=== PATIENT | female | born 1970 | race Caucasian/White ===

== ENCOUNTER 2016-07-21 07:06 | Outpatient (CLI) | payer OTHER ==
[2016-07-21 11:55] LABS: BASOPHILS # (AUTO) 0.1 10^3/uL (0.0-0.1); BASOPHILS % (AUTO) 1.1 %; EOSINOPHILS # (AUTO) 0.2 10^3/uL (0.0-0.7); EOSINOPHILS % (AUTO) 4.1 %; HCT - HEMATOCRIT 40.5 % (37.0-47.0); HGB - HEMOGLOBIN 13.7 g/dL (12.0-16.0); LYMPHOCYTES # (AUTO) 1.8 10^3/uL (1.5-3.5); MEAN CORPUSCULAR HEMOGLOBIN 31.9 pg (27.0-31.0); MEAN CORPUSCULAR HGB CONC 33.8 g/dL (32.0-36.0); MEAN CORPUSCULAR VOLUME 94.2 fL (81.0-99.0); MEAN PLATELET VOLUME 7.6 fL (7.9-10.8); MONOCYTES # (AUTO) 0.5 10^3/uL (0.0-1.0); MONOCYTES % (AUTO) 9.4 %; NEUTROPHILS # (AUTO) 2.5 10^3/uL (1.5-6.6); NEUTROPHILS % (AUTO) 49.4 %; RED CELL DISTRIBUTION WIDTH 12.4 % (12.0-15.0); UNCORRECTED WHITE BLOOD COUNT 5.1 x10^3/uL; WHITE BLOOD COUNT 5.1 x10^3/uL (4.8-10.8)
[2016-07-21 12:14] LABS: ALBUMIN/GLOBULIN RATIO 1.2 (1.0-2.2); BILIRUBIN,TOTAL 0.5 mg/dL (0.2-1.0); BUN - BLOOD UREA NITROGEN 14 mg/dL (6-20); CALCIUM 9.1 mg/dL (8.5-10.3); CARBON DIOXIDE - CO2 30 mmol/L (21-32); CHLORIDE 101 mmol/L (101-111); CHOL/HDL RATIO 3.1 (<4.4); CHOLESTEROL 271 mg/dL; CREATININE 0.7 mg/dL (0.4-1.0); GFR - MDRD 90 (>89); GLUCOSE 101 mg/dL (70-100); HDL CHOLESTEROL 88 mg/dL; LDL/HDL RATIO 1.6 (<4.4); SODIUM 139 mmol/L (135-145); TOTAL PROTEIN 7.5 g/dL (6.7-8.2); TRIGLYCERIDES 200 mg/dL; VLDL CHOLESTEROL 40 mg/dL
[2016-07-21 12:30] LABS: FERRITIN 19.4 ng/mL (11.0-306.8)
[2016-07-21 12:43] LABS: THYROID STIMULATING HORMONE 5.86 uIU/mL (0.34-5.60)
== END 2016-07-21 07:07 | disposition home or self-care (01) ==
LOC: LAB.F 07:06
PROVIDERS: ATTEND Nurse Practitioner Family
DX: Z00.00 Encounter for general adult medical examination without abnormal findings (principal); E03.9 Hypothyroidism, unspecified
CPT/HCPCS: 36415; 80053; 80061; 82306; 82728; 84436; 84439; 84443; 84481; 85025; 86376

== ENCOUNTER 2017-12-16 07:19 | Outpatient (CLI) | payer OTHER ==
[2017-12-16 12:25] LABS: BASOPHILS % (AUTO) 0.4 %; EOSINOPHILS # (AUTO) 0.2 10^3/uL (0.0-0.7); EOSINOPHILS % (AUTO) 3.6 %; HGB - HEMOGLOBIN 13.6 g/dL (12.0-16.0); LYMPHOCYTES % (AUTO) 34.7 %; MEAN CORPUSCULAR HEMOGLOBIN 32.9 pg (27.0-31.0); MEAN CORPUSCULAR HGB CONC 35.2 g/dL (32.0-36.0); MEAN CORPUSCULAR VOLUME 93.5 fL (81.0-99.0); MEAN PLATELET VOLUME 7.5 fL (7.9-10.8); MONOCYTES # (AUTO) 0.6 10^3/uL (0.0-1.0); MONOCYTES % (AUTO) 10.8 %; NEUTROPHILS % (AUTO) 50.5 %; PLT - PLATELET COUNT 265 10^3/uL (130-450); RED BLOOD COUNT 4.12 10^6/uL (4.20-5.40); RED CELL DISTRIBUTION WIDTH 12.5 % (12.0-15.0); WHITE BLOOD COUNT 5.9 x10^3/uL (4.8-10.8)
[2017-12-16 12:35] LABS: ALBUMIN/GLOBULIN RATIO 1.1 (1.0-2.2); ALKALINE PHOSPHATASE 69 IU/L (42-121); ALT ALANINE AMINOTRANSFERASE 21 IU/L (10-60); AST ASPARTATE AMINOTRANSFERASE 19 IU/L (10-42); BILIRUBIN,TOTAL 0.7 mg/dL (0.2-1.0); BUN - BLOOD UREA NITROGEN 20 mg/dL (6-20); CALCIUM 8.9 mg/dL (8.5-10.3); CARBON DIOXIDE - CO2 30 mmol/L (21-32); CHLORIDE 97 mmol/L (101-111); CHOLESTEROL 262 mg/dL; CREATININE 0.7 mg/dL (0.4-1.0); GFR - MDRD 89 (>89); GLUCOSE 108 mg/dL (70-100); HDL CHOLESTEROL 86 mg/dL; LDL CHOLESTEROL,CALCULATED 145 mg/dL; LDL/HDL RATIO 1.7 (<4.4); SODIUM 135 mmol/L (135-145); TOTAL PROTEIN 7.5 g/dL (6.7-8.2); VLDL CHOLESTEROL 31 mg/dL
[2017-12-16 12:41] LABS: THYROID STIMULATING HORMONE 3.97 uIU/mL (0.34-5.60)
[2017-12-16 12:43] LABS: FREE T4 (FREE THYROXINE) 0.87 ng/dL (0.58-1.64)
== END 2017-12-16 07:20 | disposition home or self-care (01) ==
LOC: LAB.F 07:19
PROVIDERS: ATTEND Nurse Practitioner Family
DX: Z00.00 Encounter for general adult medical examination without abnormal findings (principal); E55.9 Vitamin D deficiency, unspecified; E78.5 Hyperlipidemia, unspecified; E03.9 Hypothyroidism, unspecified
CPT/HCPCS: 36415; 80053; 80061; 82306; 83721; 84439; 84443; 84481; 85025

== ENCOUNTER 2018-01-16 16:05 | Outpatient (CLI) | payer OTHER ==
--- NOTE | 2018-01-17 09:13 | Mammography Report ---
Reason: SCREENING MAMMO Procedure Date: 01/16/2018 Accession Number: [id number] / [id number] Procedure: [facility] - Screening Mammo w/Rajiv CPT Code: FULL RESULT: EXAM: Screening Mammo w/Rajiv DATE: 01/16/2018 4:35 PM CLINICAL HISTORY: Screening encounter. Family history of breast cancer in the mother at age 55 the sister at age 40 and a grandmother at age 75. TECHNIQUE: Bilateral CC, laterally exaggerated CC, MLO views were obtained. COMPARISON: 09/09/2014 through 01/16/2009. FINDINGS: The breasts demonstrate scattered fibroglandular densities bilaterally. No suspicious masses, clustered microcalcifications, or regions of architectural distortion are identified. IMPRESSION: Negative examination RECOMMENDATION: Routine annual screening unless otherwise clinically indicated. BIRADS CATEGORY 1: Negative STANDARD QUALIFYING STATEMENTS: 1. This examination was not reviewed with the aid of Computer-Aided Detection (CAD). 2. A negative or benign imaging report should not preclude biopsy if clinically suspicious findings are present. 3. Dense breasts may obscure an underlying neoplasm. 4. This examination was reviewed with the aid of 3D breast imaging (tomosynthesis).
== END 2018-01-16 16:06 | disposition home or self-care (01) ==
LOC: DI 16:05
PROVIDERS: ATTEND Nurse Practitioner Family
DX: Z12.31 Encounter for screening mammogram for malignant neoplasm of breast (principal); Z80.3 Family history of malignant neoplasm of breast
CPT/HCPCS: 77063; 77067

== ENCOUNTER 2019-12-28 07:43 | Outpatient (CLI) | payer OTHER ==
[2019-12-28 07:56] LABS: BASOPHILS # (AUTO) 0.1 10^3/uL (0.0-0.1); BASOPHILS % (AUTO) 0.8 %; EOSINOPHILS # (AUTO) 0.3 10^3/uL (0.0-0.7); EOSINOPHILS % (AUTO) 4.8 %; LYMPHOCYTES # (AUTO) 2.5 10^3/uL (1.5-3.5); LYMPHOCYTES % (AUTO) 41.1 %; MEAN CORPUSCULAR HEMOGLOBIN 32.7 pg (27.0-31.0); MEAN CORPUSCULAR HGB CONC 33.5 g/dL (32.0-36.0); MEAN CORPUSCULAR VOLUME 97.7 fL (81.0-99.0); MEAN PLATELET VOLUME 8.6 fL (7.9-10.8); MONOCYTES # (AUTO) 0.6 10^3/uL (0.0-1.0); MONOCYTES % (AUTO) 9.3 %; NEUTROPHILS # (AUTO) 2.6 10^3/uL (1.5-6.6); NEUTROPHILS % (AUTO) 43.8 %; PLT - PLATELET COUNT 266 10^3/uL (130-450); RED BLOOD COUNT 4.28 10^6/uL (4.20-5.40); RED CELL DISTRIBUTION WIDTH 12.3 % (12.0-15.0)
[2019-12-28 08:16] LABS: ALBUMIN/GLOBULIN RATIO 1.1 (1.0-2.2); ALKALINE PHOSPHATASE 84 IU/L (42-121); ALT ALANINE AMINOTRANSFERASE 27 IU/L (10-60); AST ASPARTATE AMINOTRANSFERASE 24 IU/L (10-42); BILIRUBIN,TOTAL 0.4 mg/dL (0.2-1.0); BUN - BLOOD UREA NITROGEN 10 mg/dL (6-20); CALCIUM 9.2 mg/dL (8.5-10.3); CARBON DIOXIDE - CO2 27 mmol/L (21-32); CHLORIDE 99 mmol/L (101-111); CHOL/HDL RATIO 2.9 (<4.4); CHOLESTEROL 258 mg/dL; CREATININE 0.8 mg/dL (0.4-1.0); GLUCOSE 116 mg/dL (70-100); HDL CHOLESTEROL 89 mg/dL; LDL CHOLESTEROL,CALCULATED 131 mg/dL; LDL/HDL RATIO 1.5 (<4.4); SODIUM 138 mmol/L (135-145); TOTAL PROTEIN 7.5 g/dL (6.7-8.2); VLDL CHOLESTEROL 38 mg/dL
[2019-12-28 08:27] LABS: T4 (THYROXINE) 6.94 ug/dL (6.09-12.23)
[2019-12-28 08:29] LABS: THYROID STIMULATING HORMONE 1.97 uIU/mL (0.34-5.60)
[2019-12-28 08:30] LABS: FREE T3 3.44 pg/mL (2.5-3.9)
[2019-12-28 08:31] LABS: FREE T4 (FREE THYROXINE) 0.98 ng/dL (0.58-1.64)
[2019-12-28 08:35] LABS: FERRITIN 126.5 ng/mL (11.0-306.8)
[2019-12-28 13:39] LABS: HEMOGLOBIN A1c% 5.7 % (4.27-6.07)
== END 2019-12-28 07:44 | disposition home or self-care (01) ==
LOC: LAB 07:43
PROVIDERS: ATTEND Nurse Practitioner Family
DX: N92.0 Excessive and frequent menstruation with regular cycle (principal); E03.9 Hypothyroidism, unspecified; L40.9 Psoriasis, unspecified; R73.09 Other abnormal glucose; E78.5 Hyperlipidemia, unspecified
CPT/HCPCS: 36415; 80053; 80061; 81599; 82306; 82728; 83036; 83525; 83721; 84436; 84439; 84443; 84481; 85025; 86376

== ENCOUNTER 2020-01-09 15:07 | Outpatient (CLI) | payer OTHER ==
--- NOTE | 2020-01-10 07:44 | Mammography Report ---
BILATERAL DIGITAL SCREENING MAMMOGRAM 3D/2D: 01/09/2020 CLINICAL: Family history of breast cancer. Routine screening. Comparison is made to exams dated: 01/16/2018 mammogram, 09/09/2014 mammogram, 02/11/2014 mammogram, 06/07 mammogram, 11/24/2012 mammogram, and 03/15/2012 mammogram - [facility]. There are scattered fibroglandular elements in both breasts. No significant masses, calcifications, or other findings are seen in either breast. There has been no significant interval change. IMPRESSION: NEGATIVE There is no mammographic evidence of malignancy. A 1 year screening mammogram is recommended. This exam was interpreted at Station ID: [id number]. NOTE: For mammograms, a report in lay terms will be sent to the patient. Approximately 15% of breast malignancies will not be visualized mammographically. In the management of a palpable breast mass, a negative mammogram must not discourage biopsy of a clinically suspicious lesion. Electronically Signed By: Jay Alexis M.D. [email or web address]/[email or web address]:01/09/2020 16:15:01 ACR BI-RADS Category 1: Negative 3341F PARENCHYMAL PATTERN: (A) - The breast(s) demonstrate(s) scattered fibroglandular densities. BI-RADS CATEGORY: (1) - 1 RECOMMENDATION: (ANNUAL) - Recommend routine annual screening mammography. [id number] 1 year screening LATERALITY: (B)
== END 2020-01-09 15:08 | disposition home or self-care (01) ==
LOC: DI.N 15:07
PROVIDERS: ATTEND Nurse Practitioner Family
DX: Z12.31 Encounter for screening mammogram for malignant neoplasm of breast (principal); Z80.3 Family history of malignant neoplasm of breast

== ENCOUNTER 2020-08-10 20:48 | Emergency (ER) | payer OTHER ==
[2020-08-10] MEDS ORDERED: BACITRACIN ZINC OINT 1 PACKET TOP STA (21:24)
[2020-08-10] MEDS ORDERED: TETANUS/DIPHTHERIA/PERTUSSIS 0.5 ML SYRINGE IM ONE (21:24)
[2020-08-10] MEDS ORDERED: BUFFERED LIDOCAINE 10 ML SYRINGE SUBQ STA (21:24)
--- NOTE | 2020-08-10 21:25 | ED Physician Documentation ---
History of Present Illness - Stated complaint Stated Complaint: LT ANKLE LAC/DOG BITE - Chief complaint Chief Complaint: Laceration - Additonal information Additional information: [id number] female presents emergency department for evaluation of a left lower leg after a dog bite. Her neighbors dog had gotten out of his backyard as he was scared with the fireworks. When they were attempting to put him back into the backyard he bit her. PD PAST MEDICAL HISTORY - Present Medications Home Medications: Ambulatory Orders Medication Instructions Recorded Confirmed Amox/Clav 875/125 [Augmentin] 1 each PO Q12H #20 tablet 08/10/20 - Allergies Allergies/Adverse Reactions: Allergies Allergy/AdvReac Type Severity Reaction Status Date / Time No Known Drug Allergies Allergy Verified 08/10/20 20:57 PD ED PE EXPANDED - Extremities Extremities: Left leg (To dog bite lacerations left medial lower leg 1 measuring 3 cm the other measuring 4 cm. Mild surrounding ecchymosis.) Results - Vitals Vitals: Vital Signs - 24 hr 08/10/20 20:52 Temperature 36.7 C Heart Rate 123 H Respiratory 16 Rate Blood Pressure 167/85 H O2 Saturation 99 Oxygen O2 Source Room air Procedures - Laceration (location) left medial leg Length in cm: 7 Wound type: Linear, Into subcut fat Neurovascular status: Sensory intact, Motor intact Tendon involvement: Tendon intact Anesthesia: Lidocaine 1% Wound preparation: Chlorhexadine, Irrigated copiously NS, Wound explored Skin layer closure: Nylon, Interrupted, Sutures - enter # (6) Other: Patient tolerated well, No complications, Neurovascular intact, Dressing applied, Tetanus UTD PD MEDICAL DECISION MAKING - ED course Complexity details: reviewed results, re-evaluated patient, d/w patient ED course: 50-year-old female presents emergency department for evaluation of left lower medial leg laceration/dog bite sustained this afternoon. Tetanus was updated today in the ER. This was a dog bite the lacerations were of appropriate length to consider primary closure. The wounds were scrubbed thoroughly with chlorhexidine and irrigated with a total volume of 500 mils sterile saline. Patient will be started on Augmentin. Routine wound care and emergent return precautions were discussed for concerns of infection. Impression: Dog bite Dog bite laceration left lower medial leg. Departure - Departure Disposition: 01 Home, Self Care Condition: Stable Record reviewed to determine appropriate education?: Yes Instructions: ED Laceration All, ED Bite Dog Follow-Up: Pato Webster ARNP [Primary Care Provider] - Prescriptions: Amox/Clav 875/125 [Augmentin] 1 each PO Q12H #20 tablet Comments: Katelin it was a pleasure to meet you today. I am so sorry that your 10 August ended with a dog bite. Unfortunately dog bite wounds do carry a higher risk of infection. Your first dose of antibiotic was given here in the emergency department. Please fill the prescription for the Augmentin and begin taking twice daily as prescribed. Your suture should be removed in 7 to 10 days. In 24 hours you may remove the dressing wash gently with warm soap and water, apply any antibiotic ointment and a simple bandage. Your tetanus is up-to-date as of today. Please attempt to keep your wound clean and dry. Do not submerge it in dirty dishwater or bath water. Return to the emergency department if you have any concerns of infection such as redness, fevers milky drainage increased pain.
[2020-08-10] MEDS ORDERED: AMOX/CLAV 875 MG/125 MG TABLET PO STA (22:00)
[2020-08-10 22:13] VITALS: BP 148/71
== END 2020-08-10 22:11 | disposition home or self-care (01) ==
LOC: ED 20:48
DX: S81.852A Open bite, left lower leg, initial encounter (principal); W54.0XXA Bitten by dog, initial encounter; Y93.89 Activity, other specified
CPT/HCPCS: 12002; 90471; 90715; 99281; 99283; A9270

== ENCOUNTER 2020-09-19 09:41 | Outpatient (CLI) | payer OTHER ==
[2020-09-19 10:03] LABS: BASOPHILS % (AUTO) 0.7 %; EOSINOPHILS # (AUTO) 0.2 10^3/uL (0.0-0.7); EOSINOPHILS % (AUTO) 3.5 %; HCT - HEMATOCRIT 40.7 % (37.0-47.0); HGB - HEMOGLOBIN 13.2 g/dL (12.0-16.0); LYMPHOCYTES # (AUTO) 2.3 10^3/uL (1.5-3.5); LYMPHOCYTES % (AUTO) 41.1 %; MEAN CORPUSCULAR HEMOGLOBIN 31.7 pg (27.0-31.0); MEAN CORPUSCULAR HGB CONC 32.4 g/dL (32.0-36.0); MEAN CORPUSCULAR VOLUME 97.8 fL (81.0-99.0); MEAN PLATELET VOLUME 8.8 fL (7.9-10.8); MONOCYTES # (AUTO) 0.6 10^3/uL (0.0-1.0); MONOCYTES % (AUTO) 10.1 %; NEUTROPHILS # (AUTO) 2.5 10^3/uL (1.5-6.6); NEUTROPHILS % (AUTO) 44.4 %; PLT - PLATELET COUNT 247 10^3/uL (130-450); RED BLOOD COUNT 4.16 10^6/uL (4.20-5.40); RED CELL DISTRIBUTION WIDTH 11.9 % (12.0-15.0); WHITE BLOOD COUNT 5.7 x10^3/uL (4.8-10.8)
[2020-09-19 10:20] LABS: ALBUMIN 4.1 g/dL (3.2-5.5); ALBUMIN/GLOBULIN RATIO 1.2 (1.0-2.2); ALKALINE PHOSPHATASE 55 IU/L (42-121); ALT ALANINE AMINOTRANSFERASE 19 IU/L (10-60); AST ASPARTATE AMINOTRANSFERASE 19 IU/L (10-42); BILIRUBIN,TOTAL 0.5 mg/dL (0.2-1.0); BUN - BLOOD UREA NITROGEN 16 mg/dL (6-20); CALCIUM 9.5 mg/dL (8.5-10.3); CARBON DIOXIDE - CO2 29 mmol/L (21-32); CHLORIDE 99 mmol/L (101-111); CREATININE 0.8 mg/dL (0.4-1.0); GFR - MDRD 75 (>89); GLUCOSE 115 mg/dL (70-100); POTASSIUM 4.5 mmol/L (3.5-5.0); SODIUM 139 mmol/L (135-145); TOTAL PROTEIN 7.5 g/dL (6.7-8.2)
[2020-09-19 10:23] LABS: BILIRUBIN,DIRECT < 0.1 mg/dL (0.1-0.5)
== END 2020-09-19 09:42 | disposition home or self-care (01) ==
LOC: LAB 09:41
PROVIDERS: ATTEND Physician Assistant
DX: L40.0 Psoriasis vulgaris (principal)
CPT/HCPCS: 36415; 80053; 80076; 82248; 85025

== ENCOUNTER 2021-04-13 08:13 | Outpatient (CLI) | payer OTHER ==
[2021-04-15 14:31] LABS: NIL 0.02 IU/mL
== END 2021-04-13 08:14 | disposition home or self-care (01) ==
LOC: LAB 08:13
PROVIDERS: ATTEND Physician Assistant
DX: L40.0 Psoriasis vulgaris (principal)
CPT/HCPCS: 36415; 86480

== ENCOUNTER 2021-11-07 08:00 | Outpatient (CLI) | payer OTHER | END 2021-11-07 23:59 | disposition home or self-care (01) | LOC: LAB.N 08:00 | PROVIDERS: ATTEND Physician Assistant Medical | DX: N30.00 Acute cystitis without hematuria (principal) | CPT/HCPCS: 87086; 87181 ==

== ENCOUNTER 2022-04-06 08:02 | Outpatient (CLI) | payer OTHER ==
[2022-04-06 08:18] LABS: BASOPHILS # (AUTO) 0.1 10^3/uL (0.0-0.1); EOSINOPHILS # (AUTO) 0.2 10^3/uL (0.0-0.7); EOSINOPHILS % (AUTO) 3.1 %; HCT - HEMATOCRIT 40.5 % (37.0-47.0); HGB - HEMOGLOBIN 13.3 g/dL (12.0-16.0); LYMPHOCYTES # (AUTO) 2.3 10^3/uL (1.5-3.5); LYMPHOCYTES % (AUTO) 36.7 %; MEAN CORPUSCULAR HGB CONC 32.8 g/dL (32.0-36.0); MEAN CORPUSCULAR VOLUME 94.4 fL (81.0-99.0); MEAN PLATELET VOLUME 8.5 fL (7.9-10.8); MONOCYTES # (AUTO) 0.7 10^3/uL (0.0-1.0); MONOCYTES % (AUTO) 10.6 %; NEUTROPHILS % (AUTO) 48.3 %; PLT - PLATELET COUNT 274 10^3/uL (130-450); RED BLOOD COUNT 4.29 10^6/uL (4.20-5.40); RED CELL DISTRIBUTION WIDTH 11.7 % (12.0-15.0); WHITE BLOOD COUNT 6.2 x10^3/uL (4.8-10.8)
[2022-04-06 08:35] LABS: ALBUMIN 3.9 g/dL (3.2-5.5); ALKALINE PHOSPHATASE 66 IU/L (42-121); ALT ALANINE AMINOTRANSFERASE 27 IU/L (10-60); AST ASPARTATE AMINOTRANSFERASE 21 IU/L (10-42); BILIRUBIN,TOTAL 0.5 mg/dL (0.2-1.0); BUN - BLOOD UREA NITROGEN 23 mg/dL (6-20); CALCIUM 9.3 mg/dL (8.5-10.3); CARBON DIOXIDE - CO2 28 mmol/L (21-32); CHLORIDE 94 mmol/L (101-111); CHOL/HDL RATIO 2.8 (<4.4); CHOLESTEROL 259 mg/dL; CREATININE 0.9 mg/dL (0.4-1.0); GFR - MDRD 65 (>89); GLUCOSE 128 mg/dL (70-100); HDL CHOLESTEROL 91 mg/dL; LDL CHOLESTEROL,CALCULATED 134 mg/dL; LDL/HDL RATIO 1.5 (<4.4); POTASSIUM 3.7 mmol/L (3.5-5.0); SODIUM 134 mmol/L (135-145); TOTAL PROTEIN 7.7 g/dL (6.7-8.2); TRIGLYCERIDES 169 mg/dL; VLDL CHOLESTEROL 34 mg/dL
[2022-04-06 08:48] LABS: THYROID STIMULATING HORMONE 4.57 uIU/mL (0.34-5.60)
== END 2022-04-06 08:03 | disposition home or self-care (01) ==
LOC: LAB 08:02
PROVIDERS: ATTEND Nurse Practitioner Family
DX: I10 Essential (primary) hypertension (principal); E03.9 Hypothyroidism, unspecified; Z13.220 Encounter for screening for lipoid disorders; L40.0 Psoriasis vulgaris
CPT/HCPCS: 36415; 80053; 80061; 81599; 83721; 84443; 85025; 86480

== ENCOUNTER 2022-04-14 14:53 | Outpatient (CLI) | payer OTHER ==
--- NOTE | 2022-04-15 15:39 | Mammography Report ---
BILATERAL DIGITAL SCREENING MAMMOGRAM 3D/2D: 04/14/2022 CLINICAL: Routine screening. Comparison is made to exams dated: 01/16/2018 mammogram, 01/09/2020 mammogram, 09/09/2014 mammogram, 02/11/2014 mammogram, and 06/18/2013 mammogram - [facility]. There are scattered areas of fibroglandular density in both breasts (category b / 25%-50% glandular t issue). No significant masses, calcifications, or other findings are seen in either breast. There has been no significant interval change. IMPRESSION: NEGATIVE There is no mammographic evidence of malignancy. A 1 year screening mammogram is recommended. Based on Tyrer-Cuzick model (a risk assessment model), the patient's lifetime risk is 24.1% and her 1 0 year risk is 6.9%. If a patient has an elevated risk, a more comprehensive evaluation should be con sidered and/or a referral to a genetic counselor. The [place] [employer], [place] [employer], and NCCN Guidelines advise the consideration of Breast MRI as an adjunct to screening mammog wily in patients whose "Lifetime risk to develop breast cancer" is 20% or higher. This exam was interpreted at Station ID: [id number]. NOTE: For mammograms, a report in lay terms will be sent to the patient. Approximately 15% of breast malignancies will not be visualized mammographically. In the management of a palpable breast mass, a negative mammogram must not discourage biopsy of a clinically suspicious lesion. Electronically Signed By: Juan shetty/angelo:04/15/2022 07:23:36 letter sent: No_Letter ACR BI-RADS Category 1: Negative 3341F PARENCHYMAL PATTERN: (A) - The breast(s) demonstrate(s) scattered fibroglandular densities. BI-RADS CATEGORY: (1) - 1 Mammogram [id number] 1 year screening LATERALITY: (B)
== END 2022-04-14 14:54 | disposition home or self-care (01) ==
LOC: DI 14:53
PROVIDERS: ATTEND Nurse Practitioner Family
DX: Z12.31 Encounter for screening mammogram for malignant neoplasm of breast (principal)

== ENCOUNTER 2022-07-08 12:13 | Outpatient (CLI) | payer OTHER ==
[2022-07-08 12:42] LABS: ALBUMIN 4.1 g/dL (3.2-5.5); ALBUMIN/GLOBULIN RATIO 1.2 (1.0-2.2); BILIRUBIN,TOTAL 0.4 mg/dL (0.2-1.0); CREATININE 0.7 mg/dL (0.4-1.0); POTASSIUM 3.8 mmol/L (3.5-5.0); TOTAL PROTEIN 7.6 g/dL (6.7-8.2)
[2022-07-08 13:23] LABS: ESTIMATED AVERAGE GLUCOSE 123 mg/dL (70-100); HEMOGLOBIN A1c% 5.9 % (4.27-6.07)
== END 2022-07-08 12:14 | disposition home or self-care (01) ==
LOC: LAB 12:13
PROVIDERS: ATTEND Nurse Practitioner Family
DX: R73.9 Hyperglycemia, unspecified (principal)
CPT/HCPCS: 36415; 80053; 83036